=== PATIENT | male | born 1945 | race Caucasian/White ===

== ENCOUNTER 2017-02-16 07:36 | Emergency (ER) | payer OTHER ==
[~2017-02-16 07:36] MED LIST: ADVIL PO; APRACLONIDINE 1% OP; DIAM250B PO; DORZOLAMIDE2 % OP; GLUCPH PO; HYDROCHLOROT25 MG PO; NORV5 PO; XALAT OPH; Z100 PO; ZESTRIL10 MG PO; ZOCOR20 PO
== END 2017-02-16 13:49 | disposition home or self-care (01) ==
LOC: ER 07:36
PROC: 0H98XZZ Drainage of Buttock Skin, External Approach (ICD-10-PCS; principal; 2017-02-16)
DX: L02.31 Cutaneous abscess of buttock (principal); Z87.891 Personal history of nicotine dependence; Z79.899 Other long term (current) drug therapy; Z79.84 Long term (current) use of oral hypoglycemic drugs
CPT/HCPCS: 87070; 87205; 88305; 99283

== ENCOUNTER 2017-02-25 13:21 | Emergency (ER) | payer OTHER | END 2017-02-25 13:35 | disposition home or self-care (01) | LOC: ER 13:21 | DX: Z48.02 Encounter for removal of sutures (principal); I10 Essential (primary) hypertension; Z79.84 Long term (current) use of oral hypoglycemic drugs; Z79.899 Other long term (current) drug therapy | CPT/HCPCS: 80048; 85025; 99283 ==